=== PATIENT | female | born 1990 | race Caucasian/White ===

== ENCOUNTER 2018-12-24 14:57 | Emergency (ER) | payer OTHER ==
[2018-12-24 15:05] VITALS: BP 143/96; PULSE 87; TEMP 98.7; BMI 26.4
--- NOTE | 2018-12-24 15:12 | PDOC ---
History of Present Illness <Meera Cruz - Last Filed: 12/24/18 16:21> - General History Source: Patient Exam Limitations: No Limitations - History of Present Illness Initial Comments: 12/24/18 15:20 28 year old female with PMH hiatal hernia presented to ED for chest pain starting last night. She stated her pain is substernal, worse with movement and palpation, radiating to her back. She admitted to productive yellow cough x1 week, was diagnosed with Influenza, out of window for Tamiflu. Pt denied travel> 5 hours, hx DVT/PE, surgery<4 weeks, active malignancy <6 months. Pt admitted to hormone control use. Allergies: Penicillin <Blanca Mcdaniels - Last Filed: 12/25/18 07:58> - General Chief Complaint: Chest Pain Stated Complaint: mid back and chest pain with headache. Time Seen by Provider: 12/24/18 15:12 Past History <Meera Cruz - Last Filed: 12/24/18 16:21> - Past Medical History COPD: No Other medical history: hiatal hernia - Suicide/Smoking/Psychosocial Hx Smoking History: Never smoked Hx Alcohol Use: Yes (occasional) Drug/Substance Use Hx: No <Blanca Mcdaniels - Last Filed: 12/25/18 07:58> - Past Medical History Allergies/Adverse Reactions: Allergies Allergy/AdvReac Type Severity Reaction Status Date / Time Penicillins Allergy Intermediate Rash Verified 12/24/18 15:01 Home Medications: Ambulatory Orders Norethindrone-E.estradiol-Iron [Blisovi 24 Fe Tablet] 1 each PO DAILY 12/24/18 Review of Systems - Review of Systems Able to Perform ROS?: Yes Comments:: 12/24/18 15:22 General: denied fever, chills, night sweats, generalized weakness. HEENT: denied sore throat, rhinorrhea, ear pain. Heart: admitted to chest pain. denied palpitations, syncope, diaphoresis. Respiratory: denied shortness of breath, cough, sputum production, hemoptysis. Abdomen: denied abdominal pain, nausea, vomiting, diarrhea, constipation, blood in stool. : denied dysuria, increased urinary frequency, hematuria, urinary incontinence , flank pain. Back: admitted to back pain. Musculoskeletal: denied joint pain, muscle pain, joint swelling. Neurological: denied headache, dizziness, numbness, tingling, weakness. Skin: denied rash, laceration, abrasion. <ArslanBlanca - Last Filed: 12/25/18 07:58> *Physical Exam - Vital Signs Last Vital Signs Temp Pulse Resp BP Pulse Ox 98.7 F 87 18 143/96 100 12/24/18 14:59 12/24/18 14:59 12/24/18 14:59 12/24/18 14:59 12/24/18 14:59 <Meera Cruz - Last Filed: 12/24/18 16:21> - Vital Signs Last Vital Signs Temp Pulse Resp BP Pulse Ox 98.7 F 87 18 143/96 100 12/24/18 14:59 12/24/18 14:59 12/24/18 14:59 12/24/18 14:59 12/24/18 14:59 - Physical Exam Comments: 12/24/18 15:22 Constitutional: Well-nourished, Well-developed, appearing stated age. HEENT: head is normocephalic, atraumatic. EOMI. PERRLA. Neck: supple. Full ROM. Heart: regular rhythm. no murmurs, rubs or gallops. Lungs: clear to auscultation bilaterally. no crackles, rhonchi or wheezing. no stridor. Abdomen: soft, nontender. normal bowel sounds. no rebound, guarding, masses. Extremities: Peripheral pulses intact. No lower extremity edema. Neurological: CN 2-12 grossly intact. Moves all four extremities. Psych: awake, alert, oriented x3. Follows commands. Answers questions appropriately. <ArslanBlanca - Last Filed: 12/25/18 07:58> Moderate Sedation - Procedure Monitoring Vital Signs: Procedure Monitoring Vital Signs Temperature 98.7 F 12/24/18 14:59 Pulse Rate 87 12/24/18 14:59 Respiratory Rate 18 12/24/18 14:59 Blood Pressure 143/96 12/24/18 14:59 O2 Sat by Pulse Oximetry (%) 100 12/24/18 14:59 <Meera Cruz - Last Filed: 12/24/18 16:21> - Procedure Monitoring Vital Signs: Procedure Monitoring Vital Signs Temperature 98.7 F 12/24/18 14:59 Pulse Rate 87 12/24/18 14:59 Respiratory Rate 18 12/24/18 14:59 Blood Pressure 143/96 12/24/18 14:59 O2 Sat by Pulse Oximetry (%) 100 12/24/18 14:59 <Blanca Mcdaniels - Last Filed: 12/25/18 07:58> ED Treatment Course - ADDITIONAL ORDERS Additional order review: Laboratory Results 12/24/18 15:10 Urine HCG, Qual Negative - Medications Given in the ED: ED Medications Discontinued Medications Generic Name Dose Route Start Last Admin Trade Name Jazmin PRN Reason Stop Dose Admin Ibuprofen 800 mg 12/24/18 15:24 12/24/18 15:36 Motrin - PO 12/24/18 15:25 800 mg ONCE ONE Administration <Meera Cruz - Last Filed: 12/24/18 16:21> Medical Decision Making - Medical Decision Making 12/24/18 15:23 28 year old female with PMH hiatal hernia presented to ED for chest pain radiating to back since last night. Initial Vital Signs Temp Pulse Resp BP Pulse Ox 98.7 F 87 18 143/96 100 12/24/18 14:59 12/24/18 14:59 12/24/18 14:59 12/24/18 14:59 12/24/18 14:59 Afebrile. No tachycardia. No tachypnea. Mild hypertension. No hypoxia on room air. Labs ordered: urine testing Imaging ordered: CXR Medications ordered: none EKG performed at 1532: rate 94, regular rhythm, normal axis, normal intervals, no acute ST changes. 12/24/18 15:39 Urine testing negative. Medications ordered: ibuprofen 800 mg PO CXR report: no acute chest pathology. Pt discharged. <Blanca Mcdaniels - Last Filed: 12/25/18 07:58> *DC/Admit/Observation/Transfer - Discharge Dispostion Decision to Admit order: No <Meera Cruz - Last Filed: 12/24/18 16:21> <Blanca Mcdaniels - Last Filed: 12/25/18 07:58> Diagnosis at time of Disposition: Chest pain Qualifiers: Chest pain type: unspecified Qualified Code(s): R07.9 - Chest pain, unspecified - Discharge Dispostion Disposition: HOME Condition at time of disposition: Good - Patient Instructions Printed Discharge Instructions: DI for Chest Pain Additional Instructions: You came to the ED for chest pain. Your pain was most likely caused by inflammation in the bones and muscles of your chest wall. Your EKG and chest xray were normal. If you have continued or worsening chest pain, you should return to the ED. If you have severe shortness of breath, passing out, severe back pain, other new or worsening symptoms, you should return to the ED. Otherwise, follow up with your primary care doctor. - Post Discharge Activity Forms/Work/School Notes: Back to Work
--- NOTE | 2018-12-24 15:18 | PDOC ---
Attending Attestation - Resident Resident Name: Blanca Mcdaniels - HPI HPI: 12/24/18 15:55 Pt presents to the ED complaining of sharp, pleuritic substernal chest pain that radiates to the back. Patient is recovering from flu and states that she has had similar pain for several days, but that today it became severe. Denies shortness of breath or fever. Denies nausea or vomiting. 12/24/18 15:56 - Physicial Exam PE: 12/24/18 15:58 Agree with resident exam. Patient is alert and oriented and in no acute distress. lungs are clear. Heart has regular rate and rhythm. - Medical Decision Making 12/24/18 16:07 Pt presents to the ED complaining of pleuritic chest pain. PERC negative, no risk factors for ACS. Pain is consistent with costochonritis, but CXR performed to rule out rib fx or pneumothorax and is negative. Will discharge home with pain control and instructions to return to the Ed for worsening pain.
[2018-12-24] MEDS ORDERED: IBUPROFEN 400 MG TABLET (FP) PO ONE ×2 (15:24→15:35)
--- NOTE | 2018-12-25 10:13 | EKG ---
Test Reason : Blood Pressure : / mmHG Vent. Rate : 094 BPM Atrial Rate : 094 BPM P-R Int : 122 ms QRS Dur : 070 ms QT Int : 344 ms P-R-T Axes : 055 072 046 degrees QTc Int : 430 ms NORMAL SINUS RHYTHM NORMAL ECG NO PREVIOUS ECGS AVAILABLE Confirmed by RUBY BOYD MD ([id number]) on 12/25/2018 10:13:02 AM Referred By: DR PINK Confirmed By:RUBY BOYD MD
== END 2018-12-24 16:42 | disposition home or self-care (01) ==
LOC: FER 14:57
DX: R07.9 Chest pain, unspecified (principal)
CPT/HCPCS: 71046-TC-FY; 84703; 93005; 99282-25

== ENCOUNTER 2020-12-21 08:27 | Day surgery (SDC) | payer OTHER ==
[2020-12-14 12:32] VITALS: BMI 30.7
[2020-12-21] MEDS ORDERED: LIDOCAINE HCL 1%, 10 MG/ML (20ML VIAL) ONE (10:24)
[2020-12-21] MEDS ORDERED: BUPIVACAINE HCL/EPINEPHRINE/PF 30 ML VIAL IJ ONE (10:24)
[2020-12-21] MEDS ORDERED: fentaNYL CITRATE 250 MCG/5 ML VIAL ONE (10:31)
[2020-12-21] MEDS ORDERED: MIDAZOLAM HCL 2 MG/2 ML SINGLE DOSE VIAL ONE ×2 (10:32)
[2020-12-21] MEDS ORDERED: ROCURONIUM BROMIDE 50 MG/5 ML SYRINGE ONE (10:32)
[2020-12-21] MEDS ORDERED: PROPOFOL 20 ML ONE ×10 (10:32→11:46)
[2020-12-21] MEDS ORDERED: BUPIVACAINE 0.25% /EPI 1:200,000 10 ML VIAL INF ONE (11:29)
[2020-12-21] MEDS ORDERED: HYDROmorphone HCL/PF 1 MG/ML VIAL ONE (11:44)
[2020-12-21] MEDS ORDERED: GLYCOPYRROLATE 0.2 MG/1 ML VIAL ONE (12:44)
[2020-12-21] MEDS ORDERED: NEOSTIGMINE METHYLSULFATE 0.5 MG/1 ML - 10 ML MDV ONE (12:44)
[2020-12-21] MEDS ORDERED: NITROGLYCERIN 2% OINTMENT - 1GM PACKET TD ONE ×2 (12:53→13:19)
[2020-12-21] MEDS ORDERED: PROMETHAZINE HCL 25 MG/1 ML VIAL IVPUSH PRN (13:53)
[2020-12-21] MEDS ORDERED: ONDANSETRON 4 MG/2 ML VIAL IVPUSH PRN (13:53)
[2020-12-21] MEDS ORDERED: oxyCODONE HCL 5 MG TABLET PO PRN ×2 (13:53)
[2020-12-21 15:20] VITALS: PULSE 86
[2020-12-21 15:45] VITALS: BP 113/74; TEMP 98
== END 2020-12-21 16:19 | disposition home or self-care (01) ==
LOC: FASU 08:27
PROVIDERS: ATTEND Plastic Surgery
PROC: 0J0D3ZZ Alteration of Right Upper Arm Subcutaneous Tissue and Fascia, Percutaneous Approach (ICD-10-PCS; 2020-12-21)
PROC: 0HBV0ZZ Excision of Bilateral Breast, Open Approach (ICD-10-PCS; principal; 2020-12-21 11:29)
PROC: 0J0F3ZZ Alteration of Left Upper Arm Subcutaneous Tissue and Fascia, Percutaneous Approach (ICD-10-PCS; 2020-12-21 11:29)
DX: N62 Hypertrophy of breast (principal)
CPT/HCPCS: 84703; 88305-TC; 94760

== ENCOUNTER 2022-09-05 09:50 | Day surgery (SDC) | payer BC ==
[2022-09-04 12:12] VITALS: BMI 30.9
[2022-09-05 13:25] VITALS: PULSE 86; RESP 20; TEMP 97.1
[2022-09-05 13:33] VITALS: BP 105/66
== END 2022-09-05 13:25 | disposition home or self-care (01) ==
LOC: FASU-ENDO 09:50
PROVIDERS: ATTEND Internal Medicine
PROC: 0DB68ZX Excision of Stomach, Via Natural or Artificial Opening Endoscopic, Diagnostic (ICD-10-PCS; 2022-09-05)
PROC: 0DB38ZX Excision of Lower Esophagus, Via Natural or Artificial Opening Endoscopic, Diagnostic (ICD-10-PCS; 2022-09-05)
PROC: 0DB48ZX Excision of Esophagogastric Junction, Via Natural or Artificial Opening Endoscopic, Diagnostic (ICD-10-PCS; principal; 2022-09-05 12:07)
DX: K29.50 Unspecified chronic gastritis without bleeding (principal); K21.00 Gastro-esophageal reflux disease with esophagitis, without bleeding; Z87.19 Personal history of other diseases of the digestive system; R10.13 Epigastric pain
CPT/HCPCS: 84703; 88305-TC; 88342-TC

== ENCOUNTER 2022-12-13 08:05 | Day surgery (SDC) | payer BC ==
[2022-12-10 12:49] VITALS: BMI 30.5
[2022-12-13] MEDS ORDERED: ONDANSETRON 4 MG/2 ML VIAL ONE (08:19)
[2022-12-13] MEDS ORDERED: PROPOFOL 60 ML ONE (08:19)
[2022-12-13] MEDS ORDERED: LIDOCAINE HCL/PF 2% SDV 5ML VIAL ONE (08:19)
[2022-12-13 08:20] VITALS: RESP 18
[2022-12-13 10:12] VITALS: TEMP 97.7
[2022-12-13 11:57] VITALS: BP 116/74; PULSE 78
== END 2022-12-13 11:58 | disposition home or self-care (01) ==
LOC: FASU-ENDO 08:05
PROVIDERS: ATTEND Internal Medicine
PROC: 0DBM8ZX Excision of Descending Colon, Via Natural or Artificial Opening Endoscopic, Diagnostic (ICD-10-PCS; principal; 2022-12-13 09:27)
DX: Z12.11 Encounter for screening for malignant neoplasm of colon (principal); D12.4 Benign neoplasm of descending colon; K64.8 Other hemorrhoids; Z86.010 Personal history of colon polyps
CPT/HCPCS: 84703; 88305-TC

== ENCOUNTER 2023-12-11 16:23 | Emergency (ER) | payer OTHER, BC ==
[2023-12-11 16:36] VITALS: BP 127/91; PULSE 90; RESP 20; TEMP 98; BMI 30.9
[2023-12-11] MEDS ORDERED: IBUPROFEN 600 MG TABLET (FP) PO ONE (17:12)
[2023-12-11] MEDS: IBUPROFEN 600 MG TABLET (FP) PO ONE (17:19)
== END 2023-12-11 17:25 | disposition home or self-care (01) ==
LOC: FER 16:23
DX: S49.92XA Unspecified injury of left shoulder and upper arm, initial encounter (principal); X50.1XXA Overexertion from prolonged static or awkward postures, initial encounter; Y99.0 Civilian activity done for income or pay
CPT/HCPCS: 73030-TC-LT-FY; 99283-25

== ENCOUNTER 2024-11-08 11:19 | Emergency (ER) | payer BC ==
[2024-11-08 11:32] VITALS: BP 133/90; PULSE 97; RESP 18; TEMP 99.1; BMI 38.6
== END 2024-11-08 12:36 | disposition home or self-care (01) ==
LOC: FER 11:19
DX: J10.1 Influenza due to other identified influenza virus with other respiratory manifestations (principal); J98.8 Other specified respiratory disorders; B97.89 Other viral agents as the cause of diseases classified elsewhere; Z20.822 Contact with and (suspected) exposure to COVID-19
CPT/HCPCS: 0241U-QW; 99283-25